=== PATIENT | male | born 1970 | race African-American/Black ===

== ENCOUNTER 2017-07-11 14:22 | Emergency (ER) | payer SELFPAY ==
[~2017-07-11] VITALS: Ht 172.7 cm; Wt 86.4 kg
[2017-07-11 14:38] LABS: GLUCOSE,POINT OF CARE 101 MG/DL (70-110)
[2017-07-11] MEDS ORDERED: SODIUM CHLORIDE 0.9% 1,000 ML IV ONE (15:21)
[2017-07-11] MEDS ORDERED: KETOROLAC TROMETHAMINE 30 MG/ML VIAL IVP ONE (15:30)
[2017-07-11] MEDS ORDERED: ONDANSETRON HCL 4 MG/2 ML VIAL IVP ONE (15:30)
[2017-07-11 15:37] LABS: BASOPHILS % (AUTO) 0.5 % (0.0-2.0); EOSINOPHILS % (AUTO) 0.2 % (1.0-6.0); HEMATOCRIT 46.1 % (41-53); HEMOGLOBIN 15.9 g/dL (13.5-17.5); LYMPHOCYTES # (AUTO) 0.8 K/uL (1.0-4.8); LYMPHOCYTES % (AUTO) 9.3 % (22.0-44.0); MEAN CORPUSCULAR HEMOGLOBIN 29.6 pg (26.0-34.0); MEAN CORPUSCULAR HGB CONC 34.5 G/dL (31.0-37.0); MEAN CORPUSCULAR VOLUME 86 fL (80-100); MONOCYTES # (AUTO) 0.7 K/uL (0.1-1.0); NEUTROPHILS # (AUTO) 7.3 K/uL (1.8-7.7); PLATELET COUNT (AUTO) 194 K/uL (150-450); RED BLOOD CELL COUNT(AUTO) 5.38 MIL/uL (4.50-5.90); RED CELL DISTRIBUTION WIDTH 14.1 % (11.5-14.5)
[2017-07-11] MEDS ORDERED: METOCLOPRAMIDE HCL 5 MG/ML 2 ML VIAL IVP ONE (15:45)
[2017-07-11 15:55] LABS: ANION GAP 6 mmol/L (8-16); CALCIUM, TOTAL 9.1 mg/dL (8.8-10.5); CARBON DIOXIDE 29 mmol/L (22-29); CHLORIDE 102 mmol/L (98-107); GLOMERULAR FILTR. RATE CALC > 60 mL/min (>60); GLUCOSE,RANDOM 104 mg/dL (70-110); SODIUM SERUM 137 mmol/L (136-145); UREA NITROGEN, BLOOD 13 mg/dL (7-18)
[2017-07-11 16:00] LABS: ALANINE AMINOTRANSFERASE 52 U/L (12-78); ALBUMIN 4.1 g/dL (3.4-5.0); ALKALINE PHOSPHATASE 142 U/L (46-116); ASPARTATE AMINOTRANSFERASE 34 U/L (15-37); BILIRUBIN,TOTAL 1.2 mg/dL (0.1-1.0); LIPASE 87 U/L (73-393); TOTAL PROTEIN, SERUM 8.7 g/dL (6.4-8.2)
[2017-07-11 16:23] LABS: PLATELET MORPHOLOGY COMMENT NORMAL
[2017-07-11 17:55] VITALS: BP 126/75
[2017-07-11 18:01] LABS: APPEARANCE,URINE CLEAR (CLEAR); BILIRUBIN,URINE NEGATIVE (NEGATIVE); GLUCOSE, URINE (UA) NEGATIVE (NEGATIVE); KETONES,URINE NEGATIVE (NEGATIVE); LEUKOCYTE ESTERASE ,URINE SMALL (NEGATIVE); NITRATE,URINE NEGATIVE (NEGATIVE); OCCULT BLOOD,URINE MODERATE (NEGATIVE); PH,URINE 5.5 (5.0-8.0); PROTEIN,URINE NEGATIVE (NEGATIVE)
[2017-07-11 18:09] LABS: BACTERIA,URINE Rare /HPF (None Seen); SQUAMOUS EPITHELIAL CELL,UR Rare /LPF (None Seen)
== END 2017-07-11 18:47 | disposition home or self-care (01) ==
LOC: EMS 14:24
DX: K52.9 Noninfective gastroenteritis and colitis, unspecified (principal); I10 Essential (primary) hypertension; R73.03 Prediabetes; Z90.49 Acquired absence of other specified parts of digestive tract
CPT/HCPCS: 36415; 80053; 81001; 82962; 83690; 85025; 87086; 96374; 96375; 99284; J1885; J2405; J2765; J7030

== ENCOUNTER 2017-11-23 13:40 | Emergency (ER) | payer MEDICAID ==
[~2017-11-23] VITALS: Ht 175.3 cm; Wt 113.6 kg
[2017-11-23 15:28] LABS: BASOPHILS % (AUTO) 0.5 % (0.0-2.0); EOSINOPHILS % (AUTO) 0.6 % (1.0-6.0); HEMATOCRIT 41.2 % (41-53); HEMOGLOBIN 14.2 g/dL (13.5-17.5); LYMPHOCYTES # (AUTO) 1.6 K/uL (1.0-4.8); LYMPHOCYTES % (AUTO) 21.8 % (22.0-44.0); MEAN CORPUSCULAR HEMOGLOBIN 29.4 pg (26.0-34.0); MEAN CORPUSCULAR HGB CONC 34.5 G/dL (31.0-37.0); MEAN CORPUSCULAR VOLUME 85 fL (80-100); MONOCYTES # (AUTO) 1.2 K/uL (0.1-1.0); MONOCYTES % (AUTO) 15.5 % (2.0-9.0); NEUTROPHILS # (AUTO) 4.6 K/uL (1.8-7.7); NEUTROPHILS % (AUTO) 61.6 % (40.0-70.0); PLATELET COUNT (AUTO) 203 K/uL (150-450); RED BLOOD CELL COUNT(AUTO) 4.83 MIL/uL (4.50-5.90); RED CELL DISTRIBUTION WIDTH 13.7 % (11.5-14.5)
[2017-11-23 15:40] LABS: ANION GAP 3 mmol/L (8-16); CALCIUM, TOTAL 8.8 mg/dL (8.8-10.5); CARBON DIOXIDE 33 mmol/L (22-29); CHLORIDE 99 mmol/L (98-107); CREATININE 1.21 mg/dL (0.60-1.30); GLOMERULAR FILTR. RATE CALC > 60 mL/min (>60); GLUCOSE,RANDOM 98 mg/dL (70-110); POTASSIUM 3.8 mmol/L (3.5-5.1); SODIUM SERUM 135 mmol/L (136-145); UREA NITROGEN, BLOOD 12 mg/dL (7-18)
[2017-11-23 15:46] LABS: ALANINE AMINOTRANSFERASE 58 U/L (12-78); ALBUMIN 3.7 g/dL (3.4-5.0); ALKALINE PHOSPHATASE 110 U/L (46-116); AMYLASE 55 U/L (25-115); ASPARTATE AMINOTRANSFERASE 28 U/L (15-37); LIPASE 128 U/L (73-393); TOTAL PROTEIN, SERUM 8.2 g/dL (6.4-8.2)
[2017-11-23] MEDS ORDERED: IOVERSOL 320 MG/ML 50 ML VIAL ONE (15:48)
[2017-11-23] MEDS ORDERED: SODIUM CHLORIDE 0.9% 100 ML ONE (15:49)
[2017-11-23] MEDS ORDERED: IOVERSOL 320 MG/ML 100 ML VIAL ONE (15:49)
[2017-11-23] MEDS ORDERED: ONDANSETRON HCL 4 MG/2 ML VIAL IVP ONE (16:00)
[2017-11-23] MEDS ORDERED: KETOROLAC TROMETHAMINE 30 MG/ML VIAL IVP ONE (16:00)
[2017-11-23 16:06] LABS: APPEARANCE,URINE CLEAR (CLEAR); BILIRUBIN,URINE NEGATIVE (NEGATIVE); GLUCOSE, URINE (UA) NEGATIVE (NEGATIVE); KETONES,URINE NEGATIVE (NEGATIVE); LEUKOCYTE ESTERASE ,URINE NEGATIVE (NEGATIVE); NITRATE,URINE NEGATIVE (NEGATIVE); OCCULT BLOOD,URINE MODERATE (NEGATIVE); PH,URINE 6.5 (5.0-8.0); PROTEIN,URINE NEGATIVE (NEGATIVE)
[2017-11-23 16:15] LABS: BACTERIA,URINE None Seen /HPF (None Seen); RBC,URINE 0-2 /HPF (0-2); WBC,URINE 0-2 /HPF (0-5)
[2017-11-23 16:16] LABS: SQUAMOUS EPITHELIAL CELL,UR Rare /LPF (None Seen)
[2017-11-23 16:50] VITALS: BP 139/81
== END 2017-11-23 17:54 | disposition home or self-care (01) ==
LOC: EMS 13:40
DX: R10.13 Epigastric pain (principal); R19.7 Diarrhea, unspecified; R60.0 Localized edema; I10 Essential (primary) hypertension; R73.03 Prediabetes; R51 Headache
CPT/HCPCS: 36415; 74177; 80053; 81001; 82150; 83690; 84484; 85025; 93005; 96374; 96375; 99285; J1885; J2405; J7050; Q9967 ×2